=== PATIENT | male | born 1990 | race Caucasian/White ===

== ENCOUNTER 2017-06-10 19:35 | Emergency (ER) | payer BC, OTHER ==
[2017-06-10 19:39] VITALS: BP 126/94; PULSE 66; TEMP 97.6; BMI 25.1
--- NOTE | 2017-06-10 19:58 | PDOC ---
History of Present Illness - History of Present Illness Initial Comments: 06/10/17 20:08 26 y/o M with no PMHx presents to the ED with severe low back pain since yesterday. Patient reports the pain radiates down his leg. He states that he noticed a bump on his low back about 6 months ago, but there was no associated pain until yesterday. He denies fever or chills. He is otherwise healthy. PAST MEDICAL HISTORY: no significant history PAST SURGICAL HISTORY: no significant history FAMILY HISTORY: no pertinent history SOCIAL HISTORY: Pt lives with family and is employed. MEDICATIONS: reviewed ALLERGIES: As per nursing notes Review of Systems: General: No fevers or chills, no weakness, no weight loss HEENT: No change in vision. No sore throat,. No ear pain CardioVascular: No chest pain or shortness of breath Respiratory: No cough, or wheezing. Gastrointestinal: no nausea, vomiting, diarrhea or constipation, No rectal bleeding Genitourinary: No dysuria, hematuria, or frequency Musculoskeletal: No joint or muscle pain or swelling Neurologic: No headache, vertigo, dizziness or loss of consciousness Psychiatric: No depression Skin: No rashes or easy bruising Endocrine: No increased thirst or abnormal weight change Allergic: No skin or latex allergy All other systems reviewed and normal Physical Exam: GENERAL: The patient is awake, alert, and fully oriented, in no acute distress. HEAD: Normal with no signs of trauma. EYES: Pupils equal, round and reactive to light, extraocular movements intact, sclera anicteric, conjunctiva clear. EXTREMITIES: Normal range of motion, no edema. NEUROLOGICAL: Normal speech, normal gait. PSYCH: Normal mood, normal affect. SKIN: Left upper buttocks there is a firm, well defined, approximately 4 x 4 cm mass that feels solid on palpation. No overlying erythema or tinting of the skin. Mass is not mobile and appears to be just below the surface of the skin. Warm, Dry, normal turgor, no rashes or lesions noted. <Clarisa Lizama - Last Filed: 06/10/17 20:07> - General History Source: Patient Exam Limitations: No Limitations - History of Present Illness Initial Comments: 06/10/17 20:53 A portion of this note was documented by scribe services under my direction. I have reviewed the details of the note, within reason, and agree with the documentation. The case summary and management plan written by me. Assessment and plan: This is a 26-year-old male who comes in complaining of back pain over the area of his sciatic nerve radiating down his leg. On my exam patient had a palpable mass in the area. Patient had an ultrasound to better image the nature of the mass 06/10/17 22:28 Ultrasound shows a primarily solid lesion. Assessment and plan: This is a 26-year-old male with a lesion of his left buttocks area right over the sciatic notch. Patient is complaining of pain radiating down his leg most likely secondary from compression of the area with from the lesion. Patient was given referral to a plastic surgeon for aspiration and biopsy of the lesion. Patient was given copies of his ultrasound. There is no evidence of a infectious nature to this lesion at this time. And patient was discharged home <Beata Bean I - Last Filed: 06/10/17 22:33> - General Chief Complaint: Pain, Acute Stated Complaint: LOW BACK PAIN Time Seen by Provider: 06/10/17 19:52 Past History <Clarisa Lizama A - Last Filed: 06/10/17 20:07> - Past Medical History Other medical history: DENIES - Psycho/Social/Smoking Cessation Hx Anxiety: No Suicidal Ideation: No Smoking History: Never smoked Hx Alcohol Use: No Drug/Substance Use Hx: No Substance Use Type: Alcohol <Beata Bean I - Last Filed: 06/10/17 22:33> - Past Medical History Allergies/Adverse Reactions: Allergies Allergy/AdvReac Type Severity Reaction Status Date / Time No Known Allergies Allergy Verified 06/10/17 19:36 Home Medications: Ambulatory Orders NK [No Known Home Medication] 06/10/17 *Physical Exam - Vital Signs Last Vital Signs Temp Pulse Resp BP Pulse Ox 97.6 F 66 18 126/94 100 06/10/17 19:36 06/10/17 19:36 06/10/17 19:36 06/10/17 19:36 06/10/17 19:36 <Clarisa Lizama A - Last Filed: 06/10/17 20:07> - Vital Signs Last Vital Signs Temp Pulse Resp BP Pulse Ox 97.6 F 66 18 126/94 100 06/10/17 19:36 06/10/17 19:36 06/10/17 19:36 06/10/17 19:36 06/10/17 19:36 <Beata Bean I - Last Filed: 06/10/17 22:33> *DC/Admit/Observation/Transfer - Attestations Scribe Attestion: 06/10/17 20:08 Documentation prepared by Clarisa Lizama, acting as medical services coordinator for Beata Bean MD. <Clarisa Lizama - Last Filed: 06/10/17 20:07> - Discharge Dispostion Admit: No <Beata Bean I - Last Filed: 06/10/17 22:33> Diagnosis at time of Disposition: Left buttock pain - Discharge Dispostion Disposition: HOME Condition at time of disposition: Stable - Patient Instructions Additional Instructions: For the pain take Naprosyn 1 tablet twice a day. Because the patient is pressing on the nerve it is difficult to treat the pain however there does appear to be some mild associated inflammation of the area as well and the anti- inflammatory Naprosyn should help somewhat with the pain but also with the inflammation. It is important that you follow-up with a surgeon as she will need a biopsy of this lesion. If you want to see a general surgeon call Dr. Iglesias at [phone] and appointment If you want to follow-up with the plastic surgeon call Dr. Baltazar at [phone] and appointment Return to the emergency department immediately with ANY new, persistent or worsening symptoms. Continue any medications as previously prescribed by your physician. You should follow up with your primary doctor as soon as possible regarding today's emergency department visit. . Please make sure your doctor reviews the results of your emergency evaluation. Thank you for coming to the Emergency Department today for your care. It was a pleasure to see you today. Please note that your evaluation is INCOMPLETE until you follow-up with your doctor.
[2017-06-10] MEDS ORDERED: KETOROLAC TROMETHAMINE 60 MG/2 ML VIAL IM ONE (20:05)
[2017-06-10] MEDS ORDERED: KETOROLAC TROMETHAMINE 60 MG/2 ML VIAL ONE (20:09)
== END 2017-06-10 22:43 | disposition home or self-care (01) ==
LOC: FER 19:35
PROC: 3E0233Z Introduction of Anti-inflammatory into Muscle, Percutaneous Approach (ICD-10-PCS; principal; 2017-06-10)
DX: M79.1 Myalgia (principal)
CPT/HCPCS: 76882; 99282-25

== ENCOUNTER → 2017-07-08 | Day surgery (SDC) | payer BC, OTHER ==
--- NOTE | 2017-06-29 15:47 | HP ---
DATE OF ADMISSION: 07/08/2017 REASON FOR ADMISSION: Left buttock mass. BRIEF HISTORY: This is a 26-year-old gentleman who 3 weeks ago noted a lump in his left buttock. It is causing him discomfort; therefore, he presented to his primary care provider for further evaluation and management. At that time, he underwent an ultrasound of this abnormality, and it is noted that he has a 1.5-cm mass. The ultrasound was very nonspecific and stated that it could be solid versus fluid structure with diffuse internal debris. There was no obvious vascularity noted in the lesion; however, the tissue surrounding the mass was slightly more vascular. The patient states what brought him to the primary care physician for evaluation was one day the mass caused him severe discomfort, which led to an inability to move or walk. He had pain in the region of the mass as well as down the superior posterior left thigh. It was that that this could be related to this mass pushing on the sciatic nerve. The pain in the left leg subsequently resolved. He now wishes to have this mass removed. PAST MEDICAL HISTORY: The patient denies coronary disease, hypertension, and diabetes. 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 He has had right knee meniscus surgery. ALLERGIES: None. SOCIAL HISTORY: The patient does not smoke. He drinks socially. MEDICATIONS: None. PHYSICAL EXAMINATION: Lungs: Clear. Heart: Regular. Abdomen: Soft. Skin: On the superior outer quadrant of the left buttock is a soft tissue mass that is palpable that is approximately 1 cm to 1.5 cm. The mass is fairly well demarcated and nontender. No overlying skin changes. IMPRESSION AND PLAN: Soft tissue mass left buttock. It is difficult to determine whether this is a lipoma versus a cyst. At this point, I would recommend excising this lesion in the operating room. The patient and myself had a long conversation regarding the pros and cons of proceeding with an MRI prior to any surgical intervention. After our discussion, the patient has opted not to proceed with any further radiographic studies. The indications, alternative, and complications of the procedure are discussed. Questions answered. We will plan to obtain written consent the day of surgery. Angel EUCEDA [id number] cc: Hoa Amaya M.D. [facility] [address]
[2017-07-06 16:44] VITALS: BMI 26.1
[~2017-07-08] MED LIST: IBUPROFEN 600 MG TABLET (FP) PO ONE; IBUPROFEN 800 MG/8 ML IJ IVPB PRN; LACTATED RINGERS SOLUTION 1,000 ML IV SCH; LIDOCAINE HCL 1%, 10 MG/ML (20ML VIAL) ONE; LIDOCAINE HCL 1%, 10 MG/ML (50 mL VIAL) IJ ONE; LIDOCAINE HCL/PF 2% SDV 5ML VIAL ONE; MIDAZOLAM HCL 2 MG/2 ML SINGLE DOSE VIAL ONE; ONDANSETRON 4 MG/2 ML VIAL IVPUSH PRN; PROPOFOL 20 ML ONE; SODIUM CHLORIDE 0.9% P/F 10 ML VIAL IJ ONE; SUCCINYLCHOLINE CHLORIDE 200 MG/10 ML VIAL ONE; ceFAZolin SODIUM 1 GM VIAL IVPB ONE; ceFAZolin SODIUM 1 GM VIAL ONE; oxyCODONE HCL 5 MG TABLET PO PRN
[2017-07-08 09:02] VITALS: TEMP 97.7
--- NOTE | 2017-07-08 11:50 | OP ---
DATE OF OPERATION: 07/08/2017 PREOPERATIVE DIAGNOSIS: Soft tissue mass, left buttock. POSTOPERATIVE DIAGNOSIS: Soft tissue mass, left buttock. PROCEDURE: Excision, soft tissue mass, left buttock with a 5-cm intermediate wound closure. SURGEON: Eyal Early MD [employer]: None. ANESTHESIA: Vitor Barriga MD (general). ESTIMATED BLOOD LOSS: Minimal. SPECIMEN: Soft tissue mass, suspect fat necrosis. INDICATION FOR PROCEDURE: This is a 26-year-old gentleman who has a 3-week history of having a soft tissue mass on his left buttock. It caused him discomfort. He wished to have this removed. DESCRIPTION OF PROCEDURE: Patient identified, appropriately positioned on the operating room table (right lateral decubitus). The area prepped and draped in the usual sterile fashion with ChloraPrep. Next, 1% lidocaine without epinephrine was used for anesthesia, approximately 10 mL. A transverse incision overlying the soft tissue mass was made deep in the subcutaneous tissue. The mass identified and excised with the cautery. Hemostasis achieved with cautery as needed. Palpation of the cavity revealed no other abnormalities. The dermis reapproximated with interrupted inverted 3-0 Vicryl sutures, and the skin closed with interrupted 3- 0 vertical mattress Prolene, followed by Dermabond. At the conclusion of the case, sponge and needle counts correct. ATTESTATION: A brief operative note handwritten on the preprinted form. Angel EUCEDA [id number] cc: Hoa Amaya MD; [address] [place] [address]
[2017-07-08 12:43] VITALS: BP 143/75; PULSE 78
--- NOTE | 2017-07-09 15:19 | PATH ---
Surgical Pathology Report Patient Name: ARIEL SMALLWOOD [facility]. Rec. #: [id number] /Age/Gender: 1990 (Age: 26) / M Account: [id number] Location: [facility] SURGICAL Taken: 07/08/2017 Received: 07/08/2017 Reported: 07/09/2017 Physicians: Eyal Early Specimen(s) Received LEFT BUTTOCK MASS Clinical History Left buttock mass Final Diagnosis SOFT TISSUE, LEFT BUTTOCK, EXCISION: BENIGN ADIPOSE TISSUE CONSISTENT WITH LIPOMA IN THE PROPER CLINICAL CONTEXT, AND BENIGN FIBROUS TISSUE WITH AREAS OF INFLAMED GRANULATION TISSUE Electronically Signed Gage Ni M.D. Gross Description Received in formalin labeled "left buttock mass," is a 2.0 x 1.7 x 1.1 cm islas-yellow, irregular, unoriented portion of soft tissue. Sectioning reveals unremarkable fat. The specimen is entirely submitted in 2 cassettes. DL/07/08/2017 saudi/07/08/2017
== END | disposition home or self-care (01) ==
LOC: JASU-SURG 06:32
PROVIDERS: ATTEND Surgery
PROC: 0JB90ZZ Excision of Buttock Subcutaneous Tissue and Fascia, Open Approach (ICD-10-PCS; principal; 2017-07-08 08:00)
DX: D21.5 Benign neoplasm of connective and other soft tissue of pelvis (principal)
CPT/HCPCS: 88304-TC; 94760

== ENCOUNTER 2021-04-02 20:36 | Inpatient (IN) | payer BC, OTHER ==
[2021-04-02] MEDS ORDERED: morphine CARPU-JECT 4 MG/1 ML DISP.SYRIN IVPUSH ONE (20:55)
[2021-04-02] MEDS ORDERED: SODIUM CHLORIDE 1,000 ML IV ONE (20:55)
[2021-04-02] MEDS ORDERED: morphine SULFATE 4 MG/ML VIAL ONE (20:57)
[2021-04-02] MEDS ORDERED: ACETAMINOPHEN 1000 MG/100 ML VIAL (NON FORMULARY) IVPB ONE (20:58)
[2021-04-02] MEDS ORDERED: ACETAMINOPHEN INJECTION 100 ML IVPB ONE (21:03)
[2021-04-02 21:15] LABS: HEMATOCRIT 42.6 % (35.4-49); HEMOGLOBIN 14.7 GM/dl (11.7-16.9); RBC 5.06 M/mm3 (4.00-5.60); WHITE BLOOD COUNT 14.8 K/mm3 (4.0-10.8)
[2021-04-02 21:16] LABS: BASO % 0.5 % (0-2.0); EOS % 0.6 % (0-4.5); LYMPH % 11.6 % (8-40); MCHC 34.4 g/dl (32.0-35.9); MEAN CELL VOLUME 84.3 fl (80-96); MEAN PLT VOLUME 9.2 fl (7.5-11.1); MONO % 6.4 % (3.8-10.2); NEUT % 80.9 % (42.8-82.8); PLATELET COUNT 182 10^3/uL (134-434); RDW 13.2 % (11.9-15.9)
[2021-04-02 21:36] LABS: ALBUMIN 4.2 g/dl (3.4-5.0); BILIRUBIN,TOTAL 0.6 mg/dl (0.2-1); CALCIUM 9.3 mg/dl (8.5-10); CREATININE 0.9 mg/dl (0.55-1.3); TOT PROT 7.7 g/dl (6.4-8.2)
[2021-04-02] MEDS ORDERED: PIPERACILLIN/TAZOB 4.5 GM 4.5 GM in DEXTROSE 5%-WATER 100 ML IVPB ONE (23:19)
[2021-04-02] MEDS ORDERED: PIPERACILLIN/TAZOBACTAM 4.5 GM VIAL IVPB ONE (23:28)
[2021-04-03] MEDS ORDERED: morphine SULFATE 4 MG/ML VIAL ONE (00:42)
[2021-04-03] MEDS ORDERED: morphine CARPU-JECT 4 MG/1 ML DISP.SYRIN IVPUSH ONE (00:42)
[2021-04-03] MEDS ORDERED: DEXTROSE 5%-NORMAL SALINE 1,000 ML IV SCH (02:30)
[2021-04-03 04:16] VITALS: BMI 29.0
[2021-04-03] MEDS ORDERED: MORPHINE SULFATE 2 MG/ML VIAL IVPUSH PRN (08:51)
[2021-04-03] MEDS ORDERED: morphine SULFATE 4 MG/ML VIAL IVPUSH PRN (08:51)
[2021-04-03] MEDS ORDERED: ACETAMINOPHEN 1000 MG/100 ML VIAL (NON FORMULARY) IVPB PRN (08:54)
[2021-04-03] MEDS ORDERED: PIPERACILLIN/TAZOBACTAM 3.375 GM VIAL IVPB ONE (09:11)
[2021-04-03] MEDS ORDERED: DEXTROSE 5%-WATER - 50 ML IVPB ONE (09:11)
[2021-04-03] MEDS ORDERED: BUPIVACAINE HCL/PF 0.5% (5MG/ML) 10 ML VIAL ONE (09:47)
[2021-04-03] MEDS ORDERED: PIPERACILLIN/TAZOB 3.375 GM 3.375 GM in DEXTROSE 5%-WATER - 50 ML IVPB SCH (10:00)
[2021-04-03] MEDS ORDERED: DEXAMETHASONE SOD PHOSPHATE 4 MG/1 ML VIAL ONE (10:38)
[2021-04-03] MEDS ORDERED: LIDOCAINE HCL/PF 2% SDV 5ML VIAL ONE (10:38)
[2021-04-03] MEDS ORDERED: ONDANSETRON 4 MG/2 ML VIAL ONE (10:38)
[2021-04-03] MEDS ORDERED: PROPOFOL 20 ML ONE ×2 (10:38→10:40)
[2021-04-03] MEDS ORDERED: fentaNYL CITRATE 250 MCG/5 ML VIAL ONE (10:38)
[2021-04-03] MEDS ORDERED: ROCURONIUM BROMIDE 100 MG/10 ML VIAL ONE (10:39)
[2021-04-03] MEDS ORDERED: MIDAZOLAM HCL 2 MG/2 ML SINGLE DOSE VIAL ONE (10:40)
[2021-04-03] MEDS ORDERED: ONDANSETRON 4 MG/2 ML VIAL IVPUSH PRN ×2 (10:55→13:27)
[2021-04-03] MEDS ORDERED: LACTATED RINGERS SOLUTION 1,000 ML IV SCH (11:00)
[2021-04-03] MEDS ORDERED: SEVOFLURANE 250 ML BTL ONE (11:15)
[2021-04-03] MEDS ORDERED: BUPIVACAINE HCL/PF 0.5% (5MG/ML) 10 ML VIAL NR ONE ×2 (11:22)
[2021-04-03] MEDS ORDERED: KETOROLAC TROMETHAMINE 30 MG/1 ML VIAL ONE (11:34)
[2021-04-03] MEDS ORDERED: NEOSTIGMINE METHYLSULFATE 0.5 MG/ML - 10 ML MDV ONE (11:34)
[2021-04-03] MEDS ORDERED: GLYCOPYRROLATE 0.2 MG/1 ML VIAL ONE (11:34)
[2021-04-03] MEDS ORDERED: ACETAMINOPHEN 500 MG TABLET (FP) PO PRN (13:04)
[2021-04-03] MEDS ORDERED: oxyCODONE HCL 5 MG TABLET PO PRN (13:05)
[2021-04-03] MEDS: DEXTROSE 5%-NORMAL SALINE 1,000 ML IV SCH ×2 (15:05→21:20)
[2021-04-03] MEDS: MORPHINE SULFATE 2 MG/ML VIAL IVPUSH PRN (15:07)
[2021-04-03] MEDS ORDERED: KETOROLAC TROMETHAMINE 15 MG/ML VIAL IVPUSH PRN (18:00)
[2021-04-03] MEDS: HEPARIN NA (PORCINE) 5,000 UNITS/ML 1ML VIAL SQ SCH (21:20)
[2021-04-04] MEDS: MORPHINE SULFATE 2 MG/ML VIAL IVPUSH PRN (06:01)
[2021-04-04] MEDS: DEXTROSE 5%-NORMAL SALINE 1,000 ML IV SCH (06:11)
[2021-04-04 06:26] VITALS: BP 119/68; PULSE 61; TEMP 98.2
[2021-04-04 07:51] LABS: INR 0.97 (0.83-1.09); PROTHROMBIN TIME (PATIENT) 11.8 SEC (9.7-13.0)
[2021-04-04 07:53] LABS: ACTIVATED PTT 24.2 SECONDS (25.2-36.5)
[2021-04-04 07:54] LABS: HEMOGLOBIN 12.7 GM/dL (11.7-16.9); MCH 27.6 pg (25.7-33.7); MCHC 32.7 g/dl (32.0-35.9); MEAN CELL VOLUME 84.5 fl (80-96); MEAN PLT VOLUME 9.6 fl (7.5-11.1); PLATELET COUNT 175 10^3/uL (134-434); RBC 4.61 M/mm3 (4.00-5.60); RDW 14.5 % (11.9-15.9); WHITE BLOOD COUNT 9.7 K/mm3 (4.0-10.0)
[2021-04-04 08:02] LABS: CALCIUM 8.6 mg/dL (8.5-10.1)
[2021-04-04 08:03] LABS: ALBUMIN 3.1 g/dl (3.4-5.0); BLOOD UREA NITROGEN 12.5 mg/dL (7-18)
[2021-04-04 08:06] LABS: CREATININE 0.7 mg/dL (0.55-1.3)
[2021-04-04 08:07] LABS: BILIRUBIN,TOTAL 0.5 mg/dL (0.2-1); TOT PROT 6.5 g/dl (6.4-8.2)
[2021-04-04] MEDS: HEPARIN NA (PORCINE) 5,000 UNITS/ML 1ML VIAL SQ SCH (09:52)
== END 2021-04-04 13:59 | disposition home or self-care (01) | DRG 343 ==
LOC: FER 20:36 → J6S 04-03 02:50
PROVIDERS: ADMIT Surgery; ATTEND Surgery
PROC: 0DTJ4ZZ Resection of Appendix, Percutaneous Endoscopic Approach (ICD-10-PCS; principal; 2021-04-03 10:00)
DX: K35.890 Other acute appendicitis without perforation or gangrene (principal); D72.829 Elevated white blood cell count, unspecified
CPT/HCPCS: 36415; 74177-TC; 80053; 81003; 81015; 85025; 85027; 85610; 85730; 94760; 99285-25; C9803; J0131; Q9967; U0003; U0005

== ENCOUNTER 2022-10-23 07:42 | Emergency (ER) | payer BC, OTHER ==
[2022-10-23 07:57] VITALS: BMI 26.8
[2022-10-23] MEDS ORDERED: ACETAMINOPHEN 500 MG TABLET (FP) PO ONE (08:08)
[2022-10-23] MEDS ORDERED: LIDOCAINE 5% TOPICAL PATCH TP ONE (08:08)
[2022-10-23] MEDS ORDERED: CYCLOBENZAPRINE HCL 10 MG TABLET (FP) PO ONE (08:12)
[2022-10-23] MEDS ORDERED: CYCLOBENZAPRINE HCL 10 MG TABLET (FP) ONE (08:17)
[2022-10-23] MEDS ORDERED: ACETAMINOPHEN 325 MG TABLET (FP) ONE (08:18)
[2022-10-23] MEDS ORDERED: LIDOCAINE 5% TOPICAL PATCH ONE (08:18)
[2022-10-23] MEDS ORDERED: oxyCODONE HCL 5 MG TABLET PO ONE ×2 (09:20→12:04)
[2022-10-23] MEDS ORDERED: oxyCODONE HCL 5 MG TABLET ONE ×2 (10:19→12:18)
[2022-10-23] MEDS ORDERED: KETOROLAC TROMETHAMINE 30 MG/1 ML VIAL IM ONE (12:04)
[2022-10-23] MEDS ORDERED: DEXAMETHASONE 4 MG TABLET (FP) PO ONE (12:05)
[2022-10-23] MEDS ORDERED: DEXAMETHASONE 4 MG TABLET (FP) ONE (12:18)
[2022-10-23] MEDS ORDERED: KETOROLAC TROMETHAMINE 30 MG/1 ML VIAL ONE (12:19)
[2022-10-23 13:19] VITALS: RESP 18; TEMP 97.7
[2022-10-23 14:11] VITALS: BP 115/70; PULSE 75
[2022-10-23] MEDS ORDERED: LIDOCAINE PATCH REMOVAL MC ONE (22:00)
== END 2022-10-23 14:38 | disposition home or self-care (01) ==
LOC: JER 07:42
PROC: 3E0233Z Introduction of Anti-inflammatory into Muscle, Percutaneous Approach (ICD-10-PCS; principal; 2022-10-23)
DX: M54.50 Low back pain, unspecified (principal)
CPT/HCPCS: 72131-TC; 99284-25

== ENCOUNTER 2023-01-02 05:27 | Day surgery (SDC) | payer BC ==
[2022-12-29 10:52] VITALS: BMI 26.5
[2023-01-02] MEDS ORDERED: LIDOCAINE HCL 1% PRESERVATIVE FREE - 30ML VIAL IJ ONE ×2 (07:33→08:19)
[2023-01-02] MEDS ORDERED: DEXAMETHASONE SOD PHOSPHATE 10 MG/1 ML VIAL IVPB ONE ×2 (07:34→08:19)
[2023-01-02] MEDS ORDERED: IOHEXOL 180 MG/1 ML ML IJ ONE ×2 (07:35→08:19)
[2023-01-02 08:51] VITALS: RESP 18
[2023-01-02 10:19] VITALS: BP 119/74; PULSE 67; TEMP 97.4
== END 2023-01-02 09:55 | disposition home or self-care (01) ==
LOC: JASU-SURG 05:27
PROVIDERS: ATTEND Pain Medicine Pain Medicine
PROC: 3E0R3BZ Introduction of Anesthetic Agent into Spinal Canal, Percutaneous Approach (ICD-10-PCS; 2023-01-02)
PROC: 3E0R33Z Introduction of Anti-inflammatory into Spinal Canal, Percutaneous Approach (ICD-10-PCS; principal; 2023-01-02 08:00)
DX: M54.16 Radiculopathy, lumbar region (principal)
CPT/HCPCS: 76000-TC-FY; J1100

== ENCOUNTER 2023-01-30 04:15 | Day surgery (SDC) | payer BC ==
[2023-01-28 14:15] VITALS: BMI 26.5
[2023-01-30] MEDS ORDERED: DEXAMETHASONE SOD PHOSPHATE 10 MG/1 ML VIAL ONE (07:33)
[2023-01-30] MEDS ORDERED: LIDOCAINE HCL/PF 1% SDV 5ML VIAL ONE (07:33)
[2023-01-30] MEDS ORDERED: DEXAMETHASONE SOD PHOSPHATE 10 MG/1 ML VIAL IVPUSH ONE (12:08)
[2023-01-30] MEDS ORDERED: LIDOCAINE HCL 1% PRESERVATIVE FREE - 30ML VIAL IJ ONE (12:08)
[2023-01-30] MEDS ORDERED: IOHEXOL 180 MG/1 ML ML IJ ONE (12:09)
[2023-01-30] MEDS ORDERED: ACETAMINOPHEN 500 MG TABLET (FP) PO PRN (16:00)
[2023-01-30 17:16] VITALS: RESP 17
[2023-01-30 17:19] VITALS: BP 119/74; PULSE 70; TEMP 98.4
== END 2023-01-30 13:20 | disposition home or self-care (01) ==
LOC: JASU-SURG 04:15
PROVIDERS: ATTEND Pain Medicine Pain Medicine
PROC: 3E0R3BZ Introduction of Anesthetic Agent into Spinal Canal, Percutaneous Approach (ICD-10-PCS; 2023-01-30)
PROC: 3E0R33Z Introduction of Anti-inflammatory into Spinal Canal, Percutaneous Approach (ICD-10-PCS; principal; 2023-01-30 12:45)
DX: M54.16 Radiculopathy, lumbar region (principal)
CPT/HCPCS: 76000-TC-FY; J1100

== ENCOUNTER 2023-03-06 04:27 | Day surgery (SDC) | payer BC ==
[2023-03-05 08:58] VITALS: BMI 27.2
[~2023-03-06 04:27] MED LIST changes: +BUPIVACAINE HCL/PF 0.75% 10 ML VIAL NR ONE; -IBUPROFEN 600 MG TABLET (FP) PO ONE; -IBUPROFEN 800 MG/8 ML IJ IVPB PRN; -LACTATED RINGERS SOLUTION 1,000 ML IV SCH; +LIDOCAINE 1% P/F 10 MG/ML VIAL INF ONE; -LIDOCAINE HCL 1%, 10 MG/ML (20ML VIAL) ONE; -LIDOCAINE HCL 1%, 10 MG/ML (50 mL VIAL) IJ ONE; -LIDOCAINE HCL/PF 2% SDV 5ML VIAL ONE; -MIDAZOLAM HCL 2 MG/2 ML SINGLE DOSE VIAL ONE; -ONDANSETRON 4 MG/2 ML VIAL IVPUSH PRN; -PROPOFOL 20 ML ONE; -SODIUM CHLORIDE 0.9% P/F 10 ML VIAL IJ ONE; -SUCCINYLCHOLINE CHLORIDE 200 MG/10 ML VIAL ONE; -ceFAZolin SODIUM 1 GM VIAL IVPB ONE; -ceFAZolin SODIUM 1 GM VIAL ONE; -oxyCODONE HCL 5 MG TABLET PO PRN
[2023-03-06] MEDS ORDERED: BUPIVACAINE HCL/PF 0.75% 10 ML VIAL ONE (07:43)
[2023-03-06] MEDS ORDERED: LIDOCAINE HCL/PF 1% SDV 5ML VIAL ONE (07:43)
[2023-03-06] MEDS ORDERED: BUPIVACAINE HCL/PF 0.75% 10 ML VIAL NR ONE ×2 (13:28)
[2023-03-06] MEDS ORDERED: LIDOCAINE 1% P/F 10 MG/ML VIAL INF ONE (13:28)
[2023-03-06 13:53] VITALS: BP 118/76; PULSE 74; RESP 16; TEMP 98.8
[2023-03-06] MEDS ORDERED: ACETAMINOPHEN 500 MG TABLET (FP) PO PRN (14:47)
== END 2023-03-06 14:20 | disposition home or self-care (01) ==
LOC: JASU-SURG 04:27
PROVIDERS: ATTEND Pain Medicine Pain Medicine
PROC: 3E0T33Z Introduction of Anti-inflammatory into Peripheral Nerves and Plexi, Percutaneous Approach (ICD-10-PCS; 2023-03-06)
PROC: 3E0T3BZ Introduction of Anesthetic Agent into Peripheral Nerves and Plexi, Percutaneous Approach (ICD-10-PCS; principal; 2023-03-06 14:00)
DX: M47.816 Spondylosis without myelopathy or radiculopathy, lumbar region (principal)
CPT/HCPCS: 76000-TC-FY